=== PATIENT | female | born 1970 | race Two or more races ===

== ENCOUNTER 2022-05-17 07:44 | Emergency (ER) | payer MEDICAID, OTHER ==
[~2022-05-17] VITALS: Ht 160 cm; Wt 75.8 kg
[2022-05-17 07:54] VITALS: BP 143/90
== END 2022-05-17 09:44 | disposition home or self-care (01) ==
LOC: ER 07:44
DX: S80.12XA Contusion of left lower leg, initial encounter (principal); E78.5 Hyperlipidemia, unspecified; W22.8XXA Striking against or struck by other objects, initial encounter; Y93.89 Activity, other specified; Y92.89 Other specified places as the place of occurrence of the external cause; Y99.8 Other external cause status
CPT/HCPCS: 93971

== ENCOUNTER 2024-12-19 16:28 | Emergency (ER) | payer MEDICAID ==
[~2024-12-19] VITALS: Ht 160 cm; Wt 96.1 kg
[2024-12-19] MEDS: NITROFURANTOIN 100 mg CAP PO ONE
--- NOTE | 2024-12-19 17:07 | ED.PDOC ---
GI ASSESSMENT HPI Comments 54 year old female presents to the ED with chief complaint of abdominal/flank pain. Patient reports that she has been experiencing LLQ abdominal pain and left flank pain for the past few days. Patient relays that she was seen at an urgent care clinic and had an H. Pylori test that came back positive, being prescribed with Flagyl and Amoxicillin. Patient states she finished her antibiotic treatment. Patient denies any dysuria, hematuria, N/V/D, hematemesis, or melena. Patient does state she has had a rash on her chest and back since utilizing the antibiotic medication. Patient denies any airway or breathing compromise. Chief Complaint: Flank Pain Time Seen by MD: 17:04 Primary Care Provider: BRANDON Rand Notes: Nurses Notes, Medications, Allergies Allergies: Coded Allergies: NO KNOWN ALLERGIES (Unverified , 05/17/22) Information Source: Patient Mode of Arrival: Ambulatory Timing: Days Duration: Since onset Prehospital treatment: None Quality: Aching Vomitus: None Stool: Normal Severity: Moderate Recent: None Recent Hx of: None Pain Location: LLQ Modifying Factors: Nothing Associated sign and symptoms: Abdominal Pain Past Medical History PAST MEDICAL HISTORY: High Lipids Past Medical History (Other): Recent H pylori diagnosis and completion of antibiotics Surgical History: Hysterectomy FUR BLENDER History: Denies all FUR BLENDER Hx Family History Family History: Reviewed,noncontributory to illness Social History Smoker: Non-Smoker Alcohol: Denies ETOH Use Drugs: Denies Drug Use Lives In: Home Constitutional: denies: chills, diaphoresis, fatigue, fever, malaise, sweats, weakness, others EENTM: denies: blurred vision, double vision, ear bleeding, ear discharge, ear drainage, ear pain, ear ringing, eye pain, eye redness, hearing loss, mouth pain, mouth swelling, nasal discharge, nose bleeding, nose congestion, nose pain, photophobia, tearing, throat pain, throat swelling, voice changes, others Respiratory: denies: cough, hemoptysis, orthopnea, SOB at rest, shortness of breath, SOB with excertion, stridor, wheezing, others Cardiovascular: denies: chest pain, dizzy spells, diaphoresis, Dyspnea on exertion, edema, irregular heart beat, left arm pain, lightheadedness, palpitations, PND, syncope, others Gastrointestinal: reports: abdominal pain; denies: abdomen distended, blood streaked bowels, constipated, diarrhea, dysphagia, difficulty swallowing, hematemesis, melena, nausea, poor appetite, poor fluid intake, rectal bleeding, rectal pain, vomiting, others Genitourinary: reports: flank pain; denies: abnormal vagina bleeding, burning, dyspareunia, dysuria, frequency, hematuria, incontinence, pain, , vagina discharge, urgency, others Neurological: denies: dizziness, fainting, headache, left sided numbness, left sided weakness, numbness, paresthesia, pre-existing deficit, right sided numbness, right sided weakness, seizure, speech problems, tingling, tremors, weakness, others Musculoskeletal: denies: back pain, gout, joint pain, joint swelling, muscle pain, muscle stiffness, neck pain, others Integumetry: reports: rash; denies: bruises, change in color, change in hair/nails, dryness, laceration, lesions, lumps, wounds, others Allergic/Immunocompromised: denies: Difficulty Healing, Frequent Infections, Hives, Itching, others Hematologic/Lymphatic: denies: anemia, blood clots, easy bleeding, easy bru ising, swollen glands, others Endocrine: denies: excessive hunger, excessive sweating, excessive thirst, e xcessive urination, flushing, intolerance to cold, intolerance to heat, unexplained weight gain, unexplained weight loss, others Psychiatric: denies: anxiety, bipolar disorder, depression, hopeless, panic disorder, schizophrenia, sleepless, suicidal, others All Other Systems: Reviewed and Negative Physical Exam General Appearance: Moderate Distress ( [id number] distress due to left- sided abdominal pain concerns.), Obese HEENT: Normal ENT Inspection, PERRL/EOMI Neck: Full Range of Motion, Non-Tender, Normal, Normal Inspection Respiratory: Chest Non-Tender, Lungs Clear, No Accessory Muscle Use, No Respiratory Distress, Normal Breath Sounds Cardiovascular: No Edema, No JVD, No Murmur, No Gallop, Normal Peripheral Puls es, Regular Rate/Rhythm Breast Exam: Deferred Gastrointestinal: Other ( Diffuse left-sided abdominal tenderness to palpation extending throughout the lower and upper quadrant. No pulsatile masses. No signs of trauma.) Genitalia: Deferred Pelvic: Deferred Rectal: Deferred Extremities: No calf tenderness, Normal capillary refill, Normal inspection, Normal range of motion, Non-tender, No pedal edema Musculoskeletal : Apperance: Normal Neurologic: Alert, No Motor Deficits, Normal Affect, Normal Mood, No Sensory Deficits Cerebellar Function: Normal Reflexes: Normal Skin: Dry, Rash ( Patient displays a dario rash she her chest and back region. No signs of infection. Localized erythema.), Warm Lymphatic: No Adenopathy Was a procedure done? Was a procedure done?: No GI differential Dx Differential Diagnosis: Other ( UTI, pyelonephritis, constipation, diverticular disease, musculoskeletal concern, H pylori) X-Ray, Labs, Meds, VS Vital Signs Date Time Temp Pulse Resp B/P (MAP) Pulse Ox O2 Delivery O2 Flow Rate FiO2 12/19/24 18:11 68 18 95 Room Air 12/19/24 18:11 98.1 68 18 157/84 (108) 95 98.1 12/19/24 18:09 96 14 95 Room Air* 0 21 12/19/24 17:48 84 14 96 Room Air* 0 21 12/19/24 16:41 97.0 79 18 157/93 (114) 97 Lab Test 12/19/24 17:38 12/19/24 16:58 Range/Units H. pylori C Urea Breath Test Pending Urine Color Light-yellow Yellow Urine Clarity Clear Clear Urine pH 5.5 5.0-9.0 Urine Specific [place] 1.021 1.001-1.035 Urine Protein Trace H Negative Urine Ketones Trace Negative Urine Blood 2+ H Negative /uL Urine Nitrite Negative Negative Urine Bilirubin Negative Negative Urine Urobilinogen Normal Negative mg/dL Urine Leukocyte Esterase Negative Negative /uL Urine RBC 14 0 - 4 /hpf Urine Microscopic WBC 11 H 0-5 /HPF Urine Squamous Epithelial Cells Few <5 /hpf Urine Bacteria Few H None Seen /hpf Urine Hyaline Casts Few 0 - 2 /lpf Urine Mucus Few None Seen Urine Glucose Normal Normal mg/dL Current Medications Medications (Trade) Dose Ordered Sig/Naheed Route Start Time Stop Time Status Last Admin Ketorolac Tromethamine (Toradol Injection) 30 mg ONCE ONCE IM 12/19/24 17:00 12/19/24 17:02 DC 12/19/24 18:03 X-Ray, Labs, Meds, VS Comment All studies performed in the ED were evaluated by me personally. Laboratories revealed what appears to be in mild urinary tract infection. CT of the abdomen revealed sigmoid diverticulosis without diverticulitis. No definitive evidence of intra-abdominal pelvic abnormalities. Patient will be sent home with a short course of antibiotics and and advised him to follow up with her primary care provider for discussions related to her diverticulosis.Advised patient that is her H pylori test was a send out and will not be returned for a few days. Patient should contact this facility if she does not hear from us in the next few days for H pylori results. Time of 1ST Reevaluation: 23:39 Reevaluation 1ST: Unchanged Consultation: PCP Patient Education/Counseling: Diagnosis, Treatment Family Education/Counseling: Diagnosis, Treatment, No Family Present Departure 1 Departure Time of Disposition: 23:39 Impression: Primary Impression: Diverticulosis Additional Impression: Drug rash Disposition: HOME / SELF CARE / HOMELESS Condition: Stable e-Prescriptions Nitrofurantoin Monohydrate Mac (Macrobid) 100 Mg Cap 100 MG PO BID for 5 Days, #10 CAP Prov: MARIA M CORONA PAC 12/19/24 Dicyclomine Hcl (BENTYL CAPSULE) 10 Mg Cp 1 CAP PO Q6HPRN, #30 CAP 0 Refills Prov: MARIA M CORONA PAC 12/19/24 Discharged With: Self Critical Care Note Critical Care Time?: No Stability Stability form required: No Heart Score Heart Score: Heart Score Response (Comments) Value History N/A 0 EKG N/A 0 Age N/A 0 Risk Factors N/A 0 Troponin N/A 0 Total 0 I personally scribed for MARIA M CORONA PAC ([email or web address]) on 12/19/24 at 17:07. Electr onically submitted by Obed Mims ([email or web address]). MARIA M CORONA PAC Dec 19, 2024 17:07
[2024-12-19 17:11] LABS: Urine Bacteria FEW /hpf (None Seen); Urine Blood 2+ /uL (Negative); Urine Clarity Clear (Clear); Urine Color Light-Yellow (Yellow); Urine Hyaline Cast FEW /lpf (0 - 2); Urine Mucus FEW (None Seen); Urine Protein, UAD TRACE (Negative); Urine Specific Gravity 1.021 (1.001-1.035); Urine Squamous Epithelial Cell FEW /hpf (<5); Urine Urobilinogen Normal (Negative); Urine WBC 11 /HPF (0-5); Urine pH 5.5 (5.0-9.0)
[2024-12-19 17:48] VITALS: PULSE 84; RESP 14; O2SAT 96
[2024-12-19] MEDS: KETOROLAC TROMETH 60MG/2ML VIAL IM ONE (18:03)
[2024-12-19 18:09] VITALS: PULSE 96; RESP 14; O2SAT 95
[2024-12-19] MEDS: DexAMETHasone SOD PHOS 10MG/1ML VIAL INJ IM ONE (20:55)
--- NOTE | 2024-12-19 21:40 | DVH ---
Exam: CT CT AB PEL WO CON-NO ORAL OR IV History: Left-sided flank/ abdominal pain Comparison Study: None available at time of dictation. TECHNIQUE: Multidetector CT of the abdomen and pelvis without IV contrast. Axial, coronal and sagitta l multiplanar reformats were obtained from the axial data set by the technologist. Radiation Dose Information: CT Dose: CTDI volume is 9.77 mGy. Dose-length product is 557.03 mGy*cm FINDINGS: The lung bases are clear. Partially visualized heart is unremarkable. Liver, spleen, gallbladder, pancreas and adrenal glands unremarkable. Kidneys, ureters and urinary bladder are unremarkable. Stomach is unremarkable. Mild wall thickening of proximal small bowel loops which is most likely due to inadequate distention. Otherwise, small bowel loops unremarkable. Appendix is unremarkable. Sigm oid diverticulosis without diverticulitis. Small to moderate amount of fecal material within the col on. No evidence of intraperitoneal free air or free fluid. No evidence of aortic aneurysm. No significant lymphadenopathy. Tiny fat containing umbilical hernia. Soft tissues are unremarkable. 4 mm sclerotic focus of the ante rior T12 cortex which may represent a small bone island. No destructive osseous lesions are noted. IMPRESSION: No evidence of acute abdominopelvic abnormalities. Sigmoid diverticulosis without diverticulitis.
[2024-12-19] MEDS ORDERED: DICY10CA PO (23:51)
[2024-12-19] MEDS ORDERED: NITR-87 PO (23:51)
[2024-12-19 23:55] VITALS: BP 138/88; PULSE 96; RESP 17; TEMP 98; O2SAT 98
== END 2024-12-20 00:06 | disposition home or self-care (01) ==
LOC: ER 16:36
DX: K57.30 Diverticulosis of large intestine without perforation or abscess without bleeding (principal); L27.0 Generalized skin eruption due to drugs and medicaments taken internally; E78.5 Hyperlipidemia, unspecified; Z90.710 Acquired absence of both cervix and uterus
CPT/HCPCS: 74176; 81001; 83013; 96372; 99285; J1885